=== PATIENT | male | born 1985 | race Caucasian/White ===

== ENCOUNTER 2017-05-23 16:18 | Emergency (ER) | payer BC, SELFPAY ==
[2017-05-23 18:14] VITALS: BP 161/94; PULSE 105; RESP 16; TEMP 36.6; O2SAT 97; BMI 39.0
--- NOTE | 2017-05-23 18:19 | HMH.EDUTC ---
[facility] [place] Disposition Clinical Impression: Vertigo Sinusitis Qualifiers: Sinusitis location: maxillary Chronicity: acute Recurrence: not specified as recurrent Qualified Code(s): J01.00 - Acute maxillary sinusitis, unspecified Disposition: Home, Self-Care Condition on Discharge: Good Instructions: DI for Sinusitis Additional Instructions: REst,fluids. Prescriptions: Meclizine HCl [Antivert 25mg tablet] 25 mg PO Q6HP PRN #20 tab PRN Reason: Dizziness Amoxicillin/Potassium Clav [Augmentin 875-125 Tablet] 1 tab PO Q12H 10 Days #20 tab methylPREDNISolone [Medrol] 4 mg PO DAILY 6 Days #21 tab.ds.pk Referrals: Varghese Ortiz MD [Primary Care Provider] - Time of Disposition: 18:29 Medical Decision Making - Medical Records Medical records reviewed: Yes: I reviewed the patient's medical records. Vital Signs: 05/23/17 18:14 Temperature 98 F Temperature Source Temporal Artery Scan Pulse Rate [Right Brachial] 105 H Respiratory Rate 16 Blood Pressure [Right Arm] 161/94 Blood Pressure Mean [Right Arm] 116 Blood Pressure Source [Right Arm] Automatic Cuff Blood Pressure Position [Right Arm] Sitting 02 Sat by Pulse Oximetry 97 Oxygen Delivery Method Room Air - Lab Data Lab results reviewed: Yes: I reviewed the patient's lab results. - Larry Inquiry Pt receiving controlled substance: No [facility] [place] HPI - General Stated complaint: chest congestion, fever, dizziness Time Seen by Provider: 05/23/17 18:18 - History of Present Illness Provider Complaint: 1 week history of sinus pressure and congestion, bilateral ear pain, hot/flushed off and on. 2 day history of dizziness. Some nausea. No vomiting or diarrhea. Minimal cough. Onset (ago): day(s) (5-7) Location: head Relieving factors: medication Exacerbating factors: none Associated symptoms: fever/chills, headaches, malaise - Related Data Previous Rx's Medication Instructions Recorded Amoxicillin/Potassium Clav 1 tab PO Q12H 10 Days #20 tab 05/23/17 [Augmentin 875-125 Tablet] Meclizine HCl [Antivert 25mg 25 mg PO Q6HP PRN #20 tab 05/23/17 tablet] methylPREDNISolone [Medrol] 4 mg PO DAILY 6 Days #21 tab.ds.pk 05/23/17 Allergies Allergy/AdvReac Type Severity Reaction Status Date / Time No Known Allergies Allergy Unverified 03/31/17 14:53 [facility] History I have reviewed the patient's past medical history: Yes ROS Obtained: Yes All systems reviewed & no additional complaints - Constitutional Constitutional: Reports fever(s), Reports weakness - ENT Ears, Nose, Mouth, and Throat: Reports poor balance, Reports dizziness, Reports otalgia, Reports nasal congestion, Reports nasal discharge, Reports post nasal drip, Denies sore throat - Gastrointestinal Gastrointestingal: Reports: nausea. Denies: diarrhea, vomiting - Neurologic Neurologic: Reports vertigo Physical Exam - General General appearance: alert, in no apparent distress - Head Head exam: atraumatic, normocephalic, normal inspection - Eye Eye exam: Present: normal appearance, PERRL, EOMI - ENT ENT exam: Present: normal exam, normal oropharynx, mucous membranes moist, TM's normal bilaterally, normal external ear exam - Expanded ENT Exam Nose exam: Present: sinus tenderness - Neck Neck exam: Present: normal inspection, full ROM, trachea midline. Absent: meningismus, lymphadenopathy - Chest Chest inspection: Present: normal inspection, symmetric chest wall rise. Absent: tenderness - Respiratory Respiratory exam: Present: normal lung sounds bilaterally. Absent: respiratory distress - Cardiovascular Cardiovascular exam: Present: regular rate, normal rhythm. Absent: JVD - Abdominal Exam Abdominal exam: Present: soft, normal bowel sounds. Absent: distention, tenderness, guarding - Extremities Exam Extremities exam: Present: normal inspection, full ROM, normal capillary refill. Absent: calf tenderness - Back Exam Back exam: Present: normal inspection. Absent: t
[2017-05-23 19:14] VITALS: BP 161/94; PULSE 105; RESP 16; TEMP 36.6; O2SAT 97
[2017-05-23 20:41] LABS: UTC Influenza A Antigen Negative (Negative); UTC Influenza B Antigen Negative (Negative)
== END 2017-05-23 19:14 | disposition home or self-care (01) ==
PROVIDERS: Emergency Provider Physician Assistant; Family Provider Family Medicine; PCP Family Medicine
DX: J01.00 Acute maxillary sinusitis, unspecified (principal)
CPT/HCPCS: 87804; 96372; 99202; J1030

== ENCOUNTER → 2018-07-30 09:05 | Outpatient (CLI) | payer BC, SELFPAY ==
--- NOTE | 2018-07-30 09:13 | XR_ITS ---
XR lumbar spine min 4V Ordering Physician: Liseth Reyes APRN Patient Age: 32 years: Male HISTORY: ITS.REASON: LOW BACK PAIN TECHNIQUE: 5 view lumbar spine series COMPARISON : FINDINGS . The lumbar vertebral bodies are intact and disc spaces are fairly well-maintained throughout. . Normal alignment. No pars defect Bones well mineralized. Pedicles, transverse processes SI joints satisfactory IMPRESSION:-- . lumbar spine intact. Negative.
--- NOTE | 2018-07-30 09:13 | XR_ITS ---
XR shoulder LT min 2V Ordering Physician: Liseth Reyes APRN Patient Age: 32 years: Male HISTORY: ITS.REASON: LT SHOULDER PAIN Left shoulder and low back pain. No acute trauma of then TECHNIQUE: 3 views left shoulder COMPARISON :PA and lateral chest FINDINGS Left shoulder is intact with no fracture evident. Glenohumeral joint is intact. Humeral head and neck intact . Normal density and contour of humeral head. The subacromial space is fairly well-maintained on these limited plain film studies. AC joint unremarkable Scapula unremarkable . Bones well mineralized IMPRESSION: Left shoulder is intact neg
== END ==
PROVIDERS: PCP Nurse Practitioner Family; Visit Provider Nurse Practitioner Family
DX: M25.512 Pain in left shoulder (principal); M54.5 Low back pain
CPT/HCPCS: 72110; 73030

== ENCOUNTER → 2018-10-04 16:29 | Outpatient (CLI) | payer BC, SELFPAY ==
[2018-10-04 16:54] LABS: Basophils # 0.1 K/mm3 (0-0.2); Basophils % 0.5 % (0.1-2.0); Eosinophils # 0.2 K/mm3 (0.0-0.4); Eosinophils % 1.3 % (0.1-12.0); Hematocrit 41.4 % (42.0-52.0); Hemoglobin 13.3 g/dL (14.1-18.0); Lymphocytes # 2.1 K/mm3 (0.7-4.5); Lymphocytes % 18.9 % (10-50); Mean Corpuscular HGB Conc 32.2 g/dL (31.8-35.4); Mean Corpuscular Hemoglobin 25.7 pg (27.0-31.2); Mean Corpuscular Volume 79.8 fl (80-94); Mean Platelet Volume 7.3 fl (7.4-10.4); Monocytes # 0.7 K/mm3 (0.1-1.0); Monocytes % 6.1 % (1.7-9.3); Neutrophils # 8.1 K/mm3 (1.8-7.8); Neutrophils % 73.1 % (37.0-80.0); Platelet Count 346 K/mm3 (142-424); Red Blood Count 5.18 M/mm3 (4.60-6.20); Red Cell Distribution Width 13.7 % (11.5-17.5); White Blood Count 11.1 K/mm3 (4.8-10.8)
[2018-10-04 18:23] LABS: Alanine Aminotransferase 85 U/L (12-78); Albumin Level 3.7 gm/dL (3.4-5.0); Albumin/Globulin Ratio 1.1 (1.1-1.8); Alkaline Phosphatase 83 U/L (46-116); Amylase 51 U/L (25-115); Anion Gap 15.3 mEq/L (5-15); Aspartate Amino Transferase 34 U/L (15-37); Bilirubin,Total 0.3 mg/dL (0.2-1.0); Blood Urea Nitrogen 14 mg/dL (7-18); Carbon Dioxide 27 mmol/L (21.0-32.0); Chloride 103 mmol/L (98-107); Creatinine,Serum 0.65 mg/dL (0.70-1.30); Estimated Glomerular Filt Rate 143 ml/min (>60); GFR (African American) 173 ML/MIN (>60); Globulin 3.5 gm/dl (1.3-3.2); Glucose 89 mg/dL (74-106); Lipase 203 u/L (73-393); Potassium 4.3 mmoL/L (3.5-5.1); Sodium 141 mmol/L (136-145); Total Protein,Serum 7.2 gm/dL (6.4-8.2)
[2018-10-06 07:14] LABS: Hep A Ab, IgM Negative (Negative); Hepatitis B Core Antibody IgM Negative (Negative); Hepatitis B Surface Antigen Negative (Negative)
[2018-10-06 17:46] LABS: Hepatitis C Antibody 0.1 s/co ratio (0.0-0.9)
== END ==
PROVIDERS: Visit Provider Nurse Practitioner Family
DX: R11.0 Nausea (principal); R10.11 Right upper quadrant pain; R42 Dizziness and giddiness
CPT/HCPCS: 36415; 80053; 80074; 82150; 83690; 85025

== ENCOUNTER → 2018-11-15 09:10 | Outpatient (CLI) | payer BC, SELFPAY ==
--- NOTE | 2018-11-15 09:23 | US_ITS ---
US abdomen limited History:Right upper quadrant pain Ordering Physician:Liseth Reyes APRN Patient Age: 32 years Comparison:None Findings: Pancreas:Unremarkable. No obvious mass or abnormal fluid collection. No ductal dilatation Liver:Fatty liver Right Kidney:Unremarkable. Normal size and echogenicity. No hydronephrosis Gallbladder:The gallbladder slightly distended at 10 x 3 cm. No shadowing stones are evident. No biliary dilatation or pericholecystic fluid or gallbladder wall thickening. Common bile duct is normal at 3 mm IMPRESSION: Fatty liver. Mild gallbladder distention. No obvious stones
== END ==
PROVIDERS: PCP Nurse Practitioner Family; Visit Provider Nurse Practitioner Family
DX: R10.11 Right upper quadrant pain (principal); R10.13 Epigastric pain
CPT/HCPCS: 76705

== ENCOUNTER → 2018-11-22 12:40 | Outpatient (CLI) | payer BC, SELFPAY ==
[2018-11-22 13:06] LABS: Basophils # 0.1 K/mm3 (0-0.2); Basophils % 0.5 % (0.1-2.0); Eosinophils # 0.1 K/mm3 (0.0-0.4); Eosinophils % 1.1 % (0.1-12.0); Hematocrit 41.7 % (42.0-52.0); Hemoglobin 13.7 g/dL (14.1-18.0); Lymphocytes # 1.9 K/mm3 (0.7-4.5); Lymphocytes % 17.5 % (10-50); Mean Corpuscular HGB Conc 32.9 g/dL (31.8-35.4); Mean Corpuscular Hemoglobin 27.2 pg (27.0-31.2); Mean Corpuscular Volume 82.7 fl (80-94); Monocytes # 0.5 K/mm3 (0.1-1.0); Neutrophils # 8.2 K/mm3 (1.8-7.8); Platelet Count 350 K/mm3 (142-424); Red Blood Count 5.05 M/mm3 (4.60-6.20); Red Cell Distribution Width 13.9 % (11.5-17.5); White Blood Count 10.8 K/mm3 (4.8-10.8)
[2018-11-22 14:23] LABS: Alanine Aminotransferase 78 U/L (12-78); Albumin Level 3.6 gm/dL (3.4-5.0); Albumin/Globulin Ratio 0.9 (1.1-1.8); Alkaline Phosphatase 75 U/L (46-116); Amylase 47 U/L (25-115); Anion Gap 13.3 mEq/L (5-15); Aspartate Amino Transferase 30 U/L (15-37); Bilirubin,Total 0.4 mg/dL (0.2-1.0); Blood Urea Nitrogen 12 mg/dL (7-18); Calcium 9.2 mg/dL (8.5-10.1); Carbon Dioxide 29 mmol/L (21.0-32.0); Chloride 102 mmol/L (98-107); Creatinine,Serum 0.75 mg/dL (0.70-1.30); Estimated Glomerular Filt Rate 121 ml/min (>60); GFR (African American) 147 ML/MIN (>60); Globulin 3.8 gm/dl (1.3-3.2); Glucose 144 mg/dL (74-106); Lipase 191 u/L (73-393); Potassium 4.3 mmoL/L (3.5-5.1); Sodium 140 mmol/L (136-145); Total Protein,Serum 7.4 gm/dL (6.4-8.2)
== END ==
PROVIDERS: Visit Provider Nurse Practitioner Family
DX: R10.11 Right upper quadrant pain (principal); R11.2 Nausea with vomiting, unspecified
CPT/HCPCS: 36415; 80053; 82150; 83690; 85025

== ENCOUNTER → 2018-12-01 10:11 | Outpatient (CLI) | payer BC, SELFPAY ==
--- NOTE | 2018-12-01 10:13 | NM_ITS ---
PROCEDURE: NM HEPATOBILIARY W PHARM CLINICAL INDICATION: RUQ PAIN,N/V Right upper quadrant pain with nausea and vomiting COMPARISON: No exams were available for comparison FINDINGS: Dose: 7.93 mCi technetium Choletec 2.8 mcg of CCK. The patient did of complain nausea and pain with CCK infusion The gallbladder is visualized in less than 5 minutes. Small bowel is visualized by 5 minutes. Ejection fraction is normal at 84 percent IMPRESSION: Unremarkable exam. No evidence of common or cystic duct obstruction. Dictated by: Roberto Feliciano MD 12/02/2018 13:39 Signed by: <Electronically signed by Roberto Feliciano MD in [place]> 12/02/2018 13:39
== END ==
PROVIDERS: PCP Nurse Practitioner Family; Visit Provider Nurse Practitioner Family
DX: R10.11 Right upper quadrant pain (principal); R11.2 Nausea with vomiting, unspecified
CPT/HCPCS: 78227; A9537; J2805

== ENCOUNTER → 2018-12-27 16:04 | Outpatient (POV) | payer BC, SELFPAY | PROVIDERS: PCP Nurse Practitioner Family; Visit Provider Nurse Practitioner Family | DX: Z00.00 Encounter for general adult medical examination without abnormal findings (principal) ==

== ENCOUNTER → 2018-12-28 08:53 | Outpatient (CLI) | payer BC, SELFPAY ==
[2018-12-28 08:55] LABS: Adenovirus F 40/41, stool Not Detected (NotDetected); Astrovirus Not Detected (NotDetected); Campylobacter Not Detected (NotDetected); Clostridium Difficile A/B, PCR Not Detected (NotDetected); Cryptosporidium Not Detected (NotDetected); Cyclospora Cayetanesis Not Detected (NotDetected); Entamoeba histolytica Not Detected (NotDetected); Enteroaggregative E coli Not Detected (NotDetected); Enterotoxigenic E coli Not Detected (NotDetected); Giardia lamblia Not Detected (NotDetected); Norovirus Not Detected (NotDetected); Plesimonas Shigalloides, PCR Not Detected (NotDetected); Rotavirus A Not Detected (NotDetected); Salmonella, PCR Not Detected (NotDetected); Sapovirus Not Detected (NotDetected); Shiga-like toxin E coli Not Detected (NotDetected); Shigella Enterovasive E coli Not Detected (NotDetected); Vibrio Cholerae Not Detected (NotDetected); Vibrio, PCR Not Detected (NotDetected); Yersinia Entercolitica, PCR Not Detected (NotDetected)
[2018-12-28 11:49] LABS: Enteropathogenic E coli Detected (NotDetected)
== END ==
PROVIDERS: Visit Provider Nurse Practitioner Family
DX: A04.0 Enteropathogenic Escherichia coli infection (principal); R19.7 Diarrhea, unspecified
CPT/HCPCS: 87507

== ENCOUNTER 2019-12-06 14:56 | Emergency (ER) | payer OTHER, SELFPAY ==
[2019-12-06 15:10] VITALS: BP 157/94; PULSE 94; RESP 20; TEMP 36.7; O2SAT 96; BMI 42.4
--- NOTE | 2019-12-06 15:23 | HMH.EDUTC ---
[facility] [place] Disposition Clinical Impression: Otitis media Qualifiers: Otitis media type: suppurative Chronicity: acute Laterality: left Recurrence: non-recurrent Spontaneous tympanic membrane rupture: without spontaneous rupture Qualified Code(s): H66.002 - Acute suppurative otitis media without spontaneous rupture of ear drum, left ear Disposition: Home, Self-Care Condition on Discharge: Good Instructions: Middle Ear Infection Additional Instructions: Drink plenty of fluids. Take tylenol or ibuprofen for pain or fever. Take the medications as directed. Follow up with your regular doctor. GO TO THE ER FOR ANY WORSENING SYMPTOMS Prescriptions: methylPREDNISolone [Medrol] 4 mg PO DIRECTED 6 Days #21 tab.ds.pk Transmission Status: Received by [facility] Cefdinir [Omnicef 300mg Capsule] 300 mg PO BID #20 cap Transmission Status: Received by [facility] Referrals: Liseth Reyes APRN [Primary Care Provider] - Time of Disposition: 15:56 Medical Decision Making - Medical Records Medical records reviewed: No: I reviewed the patient's medical records. - Larry Inquiry Pt receiving controlled substance: No Vital Signs: 12/06/19 15:10 Temperature 98.1 F Temperature Source Oral Pulse Rate [Right Brachial] 94 H Respiratory Rate 20 Blood Pressure [Right Arm] 157/94 H Blood Pressure Mean [Right Arm] 115 Blood Pressure Source [Right Arm] Automatic Cuff Blood Pressure Position [Right Arm] Sitting 02 Sat by Pulse Oximetry 96 Oxygen Delivery Method Room Air Orders (Tests/Meds): ED MEDICATIONS Discontinued Medications Generic Name Dose Route Start Last Admin Trade Name Freq PRN Reason Stop Dose Admin Methylprednisolone Sodium Succinate 125 mg 12/06/19 15:53 Solu-Medrol 125mg/2ml Vial IM 12/06/19 15:54 ONCE ONE [facility] [place] HPI - General Stated complaint: ear pain in both ears Time Seen by Provider: 12/06/19 15:23 Mode of Arrival: Ambulatory Source of Information: Patient Limitations: No Limitations Description of Symptoms (Recalled from Triage Doc. by RN): PATIENT C/O DIZZINESS, EAR PAIN, COUGH, NAUSEA, AND FATIGUE X 4 DAYS HEENT Symptoms (Recalled from RN notes): Yes Resp Symptoms (Recalled from RN notes): Yes Skin Symptoms (Recalled from RN notes): No MS Symptoms (Recalled from RN notes): No Functional Status (Recalled from RN notes): WNL - History of Present Illness Provider Complaint: He c/o having a history of frequent infections and problems with his ears. He states that for the past 3 days he has been getting dizzy and having left ear pain. - Related Data Home Medications Medication Instructions Recorded Confirmed Escitalopram Oxalate [Lexapro] 10 mg PO DAILY 09/15/18 03/22/19 Dicyclomine HCl [Bentyl 10mg 10 mg PO DAILY 03/22/19 03/22/19 capsule] lisinopriL [Lisinopril 10mg Tab] 10 mg PO DAILY 03/22/19 03/22/19 Previous Rx's Medication Instructions Recorded Azithromycin [Z-Binu 250mg Tab*] 250 mg PO UD DOSE PK #6 tab 03/22/19 Oseltamivir Phosphate [Tamiflu 75 mg PO BID #10 cap 03/22/19 75mg Capsule] predniSONE [Deltasone 10mg tablet] 10 mg PO BID 4 Days #8 tab 03/22/19 Amoxicillin/Potassium Clav 1 tab PO Q12H 10 Days #20 tab 06/24/19 [Augmentin 875-125 Tablet] predniSONE [Prednisone 20mg 20 mg PO BID 5 Days #10 tab 06/24/19 Tab] Cefdinir [Omnicef 300mg Capsule] 300 mg PO BID #20 cap 12/06/19 methylPREDNISolone [Medrol] 4 mg PO DIRECTED 6 Days #21 12/06/19 tab.ds.pk Allergies Allergy/AdvReac Type Severity Reaction Status Date / Time sumatriptan [From Imitrex] Allergy Verified 12/06/19 15:15 - Worker's Comp Is this a Worker's Comp case?: No [facility] History - Hepatitis A Screen Drug use history?: No High risk sexual behaviors?: No History of sexually transmitted infection?: No Currently employed?: No Childcare worker?: No Do you have indoor plumbing?: Yes Do you have electricity?: Yes Attestation st
[2019-12-06 16:12] VITALS: BP 157/94; PULSE 94; RESP 20; TEMP 36.7; O2SAT 96
== END 2019-12-06 16:14 | disposition home or self-care (01) ==
PROVIDERS: Emergency Provider Nurse Practitioner Family; PCP Nurse Practitioner Family
DX: H66.002 Acute suppurative otitis media without spontaneous rupture of ear drum, left ear (principal); I10 Essential (primary) hypertension; E11.9 Type 2 diabetes mellitus without complications; Z88.8 Allergy status to other drugs, medicaments and biological substances
CPT/HCPCS: 96372; 99201

== ENCOUNTER 2020-06-23 10:14 | Emergency (ER) | payer OTHER, SELFPAY ==
[2020-06-23 10:22] VITALS: BP 140/82; PULSE 82; RESP 16; TEMP 36.7; O2SAT 98; BMI 42.7
--- NOTE | 2020-06-23 10:56 | HMH.EDUTC ---
[facility] [place] Disposition Clinical Impression: Strep throat Disposition: Home, Self-Care Condition on Discharge: Good Instructions: DI for Strep Throat Additional Instructions: Start antibiotics today be sure to take it as ordered with the full length of time although you should start feeling better in 24-48 hours. Change toothbrush and toothpaste 24-48 hours after starting antibiotics Tylenol or Motrin as needed for fever or pain Encourage fluids, water, Gatorade, Powerade, try cold fluids, popsicles, ice cream will make it feel better You are contagious for 24 hours. Avoid kissing anyone, no eating or drinking after anyone. You are contagious. Follow-up the ER for new or worsening symptoms or no noticeable improvement over the next 24-48 hours. Follow-up with PCP this week. Prescriptions: Azithromycin [Zithromax 250mg tab] 250 mg PO DIRECTED #6 tab Transmission Status: Pending to [facility] Referrals: Liseth Reyes APRN [Primary Care Provider] - Forms: Work/School Release Time of Disposition: 11:17 Medical Decision Making - Larry Inquiry Pt receiving controlled substance: No Vital Signs: 06/23/20 10:22 Temperature 98.1 F Temperature Source Oral Pulse Rate [Right] 82 Respiratory Rate 16 Blood Pressure [Right Arm] 140/82 Blood Pressure Mean [Right Arm] 101 Blood Pressure Source [Right Arm] Automatic Cuff Blood Pressure Position [Right Arm] Sitting 02 Sat by Pulse Oximetry 98 Oxygen Delivery Method Room Air - Lab Data Lab Results 06/23/20 10:43: Strep Scn Rapid Clinic Positive A Orders (Tests/Meds): ORDERS Category Date Time Status Covid-19 Nasal PCR ([facility]) Routine Lab 06/23/20 11:00 Received [facility] [place] HPI - General Chief complaint: Urgent [facility] Stated complaint: sinus issues, chest congestion, coughing Time Seen by Provider: 06/23/20 10:57 Mode of Arrival: Ambulatory Source of Information: Patient Limitations: No Limitations Description of Symptoms (Recalled from Triage Doc. by RN): sore throat and productive cough with brown sputum. HEENT Symptoms (Recalled from RN notes): Yes (sore throat) Resp Symptoms (Recalled from RN notes): Yes (productive cough with brown sputum) Skin Symptoms (Recalled from RN notes): No MS Symptoms (Recalled from RN notes): No Functional Status (Recalled from RN notes): na - History of Present Illness Provider Complaint: 34 yr old male presents for sore throat, nasal congestion, coughing up brown sputum for 3 days. - Related Data Home Medications Medication Instructions Recorded Confirmed Escitalopram Oxalate [Lexapro] 10 mg PO DAILY 09/15/18 03/22/19 Dicyclomine HCl [Bentyl 10mg 10 mg PO DAILY 03/22/19 03/22/19 capsule] lisinopriL [Lisinopril 10mg Tab] 10 mg PO DAILY 03/22/19 03/22/19 Previous Rx's Medication Instructions Recorded Azithromycin [Z-Binu 250mg Tab*] 250 mg PO UD DOSE PK #6 tab 03/22/19 Oseltamivir Phosphate [Tamiflu 75 mg PO BID #10 cap 03/22/19 75mg Capsule] predniSONE [Deltasone 10mg tablet] 10 mg PO BID 4 Days #8 tab 03/22/19 Amoxicillin/Potassium Clav 1 tab PO Q12H 10 Days #20 tab 06/24/19 [Augmentin 875-125 Tablet] predniSONE [Prednisone 20mg 20 mg PO BID 5 Days #10 tab 06/24/19 Tab] Cefdinir [Omnicef 300mg Capsule] 300 mg PO BID #20 cap 12/06/19 methylPREDNISolone [Medrol] 4 mg PO DIRECTED 6 Days #21 12/06/19 tab.ds.pk Azithromycin [Zithromax 250mg 250 mg PO DIRECTED #6 tab 06/23/20 tab] Allergies Allergy/AdvReac Type Severity Reaction Status Date / Time sumatriptan [From Imitrex] Allergy Verified 06/23/20 10:22 - Worker's Comp Is this a Worker's Comp case?: No [facility] History - Hepatitis A Screen Drug use history?: No High risk sexual behaviors?: No History of sexually transmitted infection?: No Currently employed?: No Childcare worker?: No Do you have indoor plumbing?: Yes Do you have electricity?: Yes Attestation statement:: This patien
[2020-06-23 11:08] LABS: UTC Strep Screen (Rapid) Positive (Negative)
[2020-06-23 11:27] VITALS: BP 138/79; PULSE 78; RESP 18; TEMP 36.6
== END 2020-06-23 11:30 | disposition home or self-care (01) ==
PROVIDERS: Emergency Provider Nurse Practitioner Family; PCP Nurse Practitioner Family
DX: J02.0 Streptococcal pharyngitis (principal); Z20.822 Contact with and (suspected) exposure to COVID-19; I10 Essential (primary) hypertension; E11.9 Type 2 diabetes mellitus without complications; F41.9 Anxiety disorder, unspecified
CPT/HCPCS: 87880; 99202; G0463; U0003

== ENCOUNTER → 2020-08-21 15:51 | Outpatient (CLI) | payer OTHER, SELFPAY ==
--- NOTE | 2020-08-21 15:51 | MR_ITS ---
PROCEDURE: MR HEAD/BRAIN WO CON CLINICAL INDICATION: eval for [employer] abnormality COMPARISON: No exams were available for comparison TECHNIQUE: Routine multiplanar multi echo sequences are performed without gadolinium enhancement. FINDINGS: No evidence of restricted diffusion. No intra or extra-axial hemorrhage, space occupying lesion or acute infarct. The flow voids in the major intracranial vessels are preserved. The neal-white matter differentiation is unremarkable without evidence of acute infarcts. Brain parenchymal volume is appropriate for the age of the patient. No midline shift or mass effect. The sella and the suprasellar region are unremarkable. The visualized osseous structures are unremarkable. Minor mucosal thickening of the ethmoidal sinuses. Otherwise the paranasal sinuses and mastoid air cells are clear. IMPRESSION: No acute intracranial process. Dictated by: Mariann Garcia 08/22/2020 10:35 Mariann Garcia in [place] 08/22/2020 10:35
== END ==
PROVIDERS: PCP Nurse Practitioner Family; Visit Provider Specialist
DX: G43.709 Chronic migraine without aura, not intractable, without status migrainosus (principal)
CPT/HCPCS: 70551

== ENCOUNTER → 2020-08-30 10:46 | Outpatient (CLI) | payer OTHER, SELFPAY | PROVIDERS: PCP Nurse Practitioner Family; Visit Provider Nurse Practitioner Family | DX: G47.33 Obstructive sleep apnea (adult) (pediatric) (principal); R06.83 Snoring; G43.709 Chronic migraine without aura, not intractable, without status migrainosus; I10 Essential (primary) hypertension; Z68.41 Body mass index [BMI] 40.0-44.9, adult | CPT/HCPCS: 95806 ==

== ENCOUNTER 2020-10-25 10:46 | Emergency (ER) | payer OTHER, SELFPAY ==
[2020-10-25 10:50] VITALS: BP 126/81; PULSE 71; RESP 18; TEMP 36.7; O2SAT 97; BMI 40.6
[2020-10-25 11:15] VITALS: BP 126/81; PULSE 71; RESP 18; TEMP 36.7; O2SAT 97
--- NOTE | 2020-10-25 11:15 | HMH.EDUTC ---
[facility] [place] Disposition Clinical Impression: Strep throat Disposition: Home, Self-Care Condition on Discharge: Good Instructions: DI for Strep Throat, Strep Throat, Amoxicillin, Benzonatate Additional Instructions: *Monitor Temp, Over the counter Motrin or Tylenol as directed/as needed Tylenol every 4 hours and Motrin every 6 hours (as long as your family doctor has told you that you can take it) for fever or pain. and straight to ER if unable to lower temp less than 101.0 after medication given *Warm salt water gargles may help to soothe the throat *Throat Lozenges *Warm fluids like tea with honey may help to soothe the throat *Sleep elevated *Humidifier/Vaporizer *Flonase 2 sprays in each nostril daily but be aware that it may take 2-3 days before you notice improvement Take medication as prescribed Your throat swab was sent for culture. Those results are typically sent to your primary care. Be sure to follow up in 2-3 days with your family doctor/primary care physician if no improvement so they can review those result and treat if necessary. If you don?t have a primary care doctor, I recommend you get one but in the mean time, you will have to return to a walk in clinic Follow up IMMEDIATELY for new or worsening symptoms or no Noticeable improvement over the next 48-72 hours. 911 for difficulty breathing or swallowing Prescriptions: Amoxicillin [Amoxicillin 875MG Tab] 875 mg PO Q12H #20 tab Transmission Status: Pending to [facility] Benzonatate [Tessalon Perle 100mg Cap*] 100 mg PO TID PRN #15 cap PRN Reason: Cough Transmission Status: Pending to [facility] Referrals: Liseth Reyes APRN [Primary Care Provider] - As needed Time of Disposition: 11:18 Medical Decision Making - Larry Inquiry Pt receiving controlled substance: No Larry was queried for this patient: No Vital Signs: 10/25/20 10:50 Temperature 98.1 F Temperature Source Oral Pulse Rate [Left Brachial] 71 Respiratory Rate 18 Blood Pressure [Left Arm] 126/81 Blood Pressure Mean [Left Arm] 96 Blood Pressure Source [Left Arm] Automatic Cuff Blood Pressure Position [Left Arm] Sitting 02 Sat by Pulse Oximetry 97 Oxygen Delivery Method Room Air - Lab Data Lab results reviewed: Yes: I reviewed the patient's lab results. [facility] [place] HPI - General Stated complaint: possible strep,sore throat, cough, ear pain Time Seen by Provider: 10/25/20 11:15 Mode of Arrival: Ambulatory Source of Information: Patient Limitations: No Limitations Description of Symptoms (Recalled from Triage Doc. by RN): PATIENT C/O SORE THROAT AND COUGH SINCE LAST NIGHT HEENT Symptoms (Recalled from RN notes): Yes Resp Symptoms (Recalled from RN notes): No Skin Symptoms (Recalled from RN notes): No MS Symptoms (Recalled from RN notes): No Functional Status (Recalled from RN notes): WNL - History of Present Illness Provider Complaint: Patient states that he thinks he may have strep throat State that he was recenlty around his cousin that has since tested positive for strep throat States that he has been having sore throat, cough, and bilateral ear pain and wanted to get checked - Related Data Home Medications Medication Instructions Recorded Confirmed lisinopriL [Lisinopril 10mg Tab] 10 mg PO DAILY 03/22/19 09/24/20 cyclobenzaprine 10 mg tablet 10 mg PO HS PRN 08/13/20 09/24/20 dicyclomine 10 mg capsule 10 mg PO TID cap 08/13/20 09/24/20 escitalopram oxalate 10 mg tablet 20 mg PO DAILY tab 08/13/20 09/24/20 fluticasone propionate 50 1 spray INTRANASAL BID 08/13/20 09/24/20 mcg/actuation nasal spray,suspension meloxicam 15 mg tablet 15 mg PO DAILY 08/13/20 09/24/20 Previous Rx's Medication Instructions Recorded rimegepant 75 mg disintegrating 75 mg PO ONCE PRN #8 tab 08/13/20 tablet topiramate 50 mg tablet 150 mg PO HS 30 Days #90 tab 09/24/20 Amoxicillin [Amoxicillin 875MG 875 mg PO Q12H #20 tab 10/25/20 Tab] Benzonatate [Tessalon Pe
[2020-10-25 11:20] LABS: UTC Strep Screen (Rapid) Positive (Negative)
== END 2020-10-25 11:23 | disposition home or self-care (01) ==
PROVIDERS: Emergency Provider Nurse Practitioner; PCP Nurse Practitioner Family
DX: J02.0 Streptococcal pharyngitis (principal); E11.9 Type 2 diabetes mellitus without complications; I10 Essential (primary) hypertension; M19.90 Unspecified osteoarthritis, unspecified site; G43.909 Migraine, unspecified, not intractable, without status migrainosus
CPT/HCPCS: 87880; 99202; G0463

== ENCOUNTER → 2021-05-09 11:39 | Outpatient (CLI) | payer OTHER, SELFPAY ==
[2021-05-10 13:35] LABS: Covid-19 Nasal PCR Sendout Lex NOT DETECTED
== END ==
PROVIDERS: Visit Provider Nurse Practitioner
DX: Z20.822 Contact with and (suspected) exposure to COVID-19 (principal)
CPT/HCPCS: C9803; U0004; U0005

== ENCOUNTER → 2021-11-04 08:50 | Outpatient (CLI) | payer SELFPAY ==
--- NOTE | 2021-11-04 08:51 | CT_ITS ---
FINAL REPORT CLINICAL HISTORY: . CHEST PAIN, SIGNIFICANT FAMILY HX CORONARY ARTERY DISEASE. FINDINGS: CT CORONARY CALCIUM SCORE W/O TECHNIQUE: Thin-section axial images were obtained through the heart and coronary arteries per CT coronary calcium score protocol. This study was performed with techniques to keep radiation doses as low as reasonably achievable (ALARA). Individualized dose reduction techniques using automated exposure control or adjustment of mA and/or kV according to the patient's size were employed. FINDINGS: On the axial images, there is no coronary artery calcification. This gives a coronary artery calcium score of 0 based on the Agatston scale. This coronary artery calcium score places the patient within the 0 percentile based on age and gender. The heart size is normal. There is no pericardial effusion. Limited evaluation of the lungs reveal no suspicious nodule. IMPRESSION: Coronary artery calcium score of 0 which places the patient in the 0 percentile rank for gender and age. Reviewed, Interpreted and Dictated by Monserrat Mckeon MD Transcribed by Doris Garcia Authenticated and [facility]
== END ==
PROVIDERS: PCP Nurse Practitioner Family; Visit Provider Nurse Practitioner Family
DX: R06.09 Other forms of dyspnea (principal); R07.89 Other chest pain; I10 Essential (primary) hypertension
CPT/HCPCS: 75571

== ENCOUNTER → 2021-11-04 09:21 | Outpatient (CLI) | payer BC, SELFPAY ==
--- NOTE | 2021-11-04 | CA_ITS ---
APPROVED REPORT Exam: Exercise Treadmill Technologist: Rosa Coy, Ht: 5 ft 11 in Wt: 268 lbs BSA: 2.39 m2 HR: 65 bpm BP: 128/72 mmHg Rhythm: NSR Medical History Medical History: HTN, Diabetes Medications: Lisinopril,,,,, Aspirin,,,,, Trazadone,,,,, Escitalopram,,,,, Mobic,,,,, TopIRAMATE,,,,, DicyCLOMINE,,,,, Levocetirizine,,,,, CyclobenzapINE,,,,, ANASpaz,,,,, Cardiac Risk Factors: HTN, Diabetes (non-insulin), FHX of CAD Stress Test Details Test: Silvio HR Resting HR: 79 bpm Max Heart Rate (APMHR): 186.205503 bpm Max HR Achieved: 164 bpm Target HR (85% APMHR): 158.688659 bpm % of APMHR: 88.17 Recovery HR: 133 bpm BP Resting BP: 153/71 mmHg Max BP: 190/81 mmHg Recovery BP: 190.0/81.0 mmHg ECG Resting ECG: NSR Clinical Reason for Termination: Dyspnea Leg Pain Exercise duration: 08:00 min Highest Stage Achieved: Exercise capacity: 10.1 METs Stress ECG Conclusion During silvio protocol pt walked total of 8 minutes, 10.1 METS. No CP noted. No arrhythmias noted. <1.5mm ST segment changes. Negative stress test. Test Summary REST . . . . . . . Sitting REST . . . . . . . Protocol changed to Manual Treadmill REST . . . . . . . Standing REST 21:13 0.0 0.8 79 . 153/ 71 . . Stage 1 . . . . . . . Protocol changed to Silvio Stage 1 01:00 10.0 1.7 92 . . . . Stage 1 02:00 10.0 1.7 111 . . . . Stage 1 03:00 10.0 1.7 109 . 160/ 80 . . Stage 2 01:00 12.0 2.5 119 . . . . Stage 2 02:00 12.0 2.5 132 . . . . Stage 2 03:00 12.0 2.5 133 . 178/ 83 . . Stage 3 01:00 14.0 3.4 152 . . . . Stage 3 02:00 14.0 3.4 163 . . . Stop exercise at 08:00 RECOVERY 01:00 0.0 0.0 133 . . . . RECOVERY 02:00 0.0 0.0 108 . . . . RECOVERY 03:00 0.0 0.0 100 . . . . RECOVERY 04:00 0.0 0.0 93 . 190/ 81 . . RECOVERY 05:00 0.0 0.0 85 . 190/ 81 . . RECOVERY 06:00 0.0 0.0 86 . 156/ 79 . . RECOVERY 07:00 0.0 0.0 0 . 156/ 79 . . RECOVERY 07:37 0.0 0.0 0 . 156/ 79 . . Electronically signed by : Alli Herman MD 11/04/2021 19:01:27
--- NOTE | 2021-11-04 09:21 | CA_ITS ---
APPROVED REPORT EXAM: Comprehensive 2D, Doppler, and color-flow Echocardiogram It Infrastructure Specialist: Maira Patel RVT Ht: 5 ft 11 in Wt: 269lbs BSA: 2.39 BP: 122/67 mmHg Indications: CP,HTN,SOA,FAMILY HX HD Stress Test Details HR Max Heart Rate (APMHR): 186.870657 bpm Target HR (85% APMHR): 158.846250 bpm BP ECG Conclusion 1. Patient exercised on Michael protocol for 8 minutes, achieved 10.1 METs of workload on treadmill, the blood pressure response to exercise was adequate, there was no exercise-induced chest discomfort. EKG was negative for ischemia. 2. Resting echocardiogram showed normal left ventricular size and function, with exercise there is increase in contractility of all the segments of the myocardium with hyperdynamic left ventricular systolic response, no obvious wall motion abnormality to suggest underlying ischemic heart disease. 3. Normal exercise stress echocardiogram. Electronically signed by : Alli Herman MD 11/04/2021 20:12:44
--- NOTE | 2021-11-04 09:21 | CA_ITS ---
APPROVED REPORT EXAM: Comprehensive 2D, Doppler, and color-flow Echocardiogram Core Placer: Caterina Mota CRT Ht: 5 ft 11 in Wt: 268lbs BSA: 2.39 BP: 122/67 mmHg Indications: Chest Pain, Shortness of Breath, Diabetes, Hypertension/HDD, family hx 2D Dimensions LVOT 2.03 cm (M/F) 1.5-2.5 LA Volume 33.40 mL LA Volume Index 14.00 mL/m2 (M/F) 16-34 M-Mode Dimensions RVDd 2.37 cm (0.9-2.6) LA Diam 3.07 cm (1.9-4.0) LVDd 6.03 cm (3.5-5.7) Ao Diam 3.72 cm (2.0-3.7) LVDs 3.30 cm (3.5-5.7) IVSd 1.04 cm (0.6-1.1) PWd 0.75 cm (0.6-1.1) EF (Teich) 75.80% FS 45.30% EDV (Teich) 182.10 mL TAPSE 2.12 (<1.7) ESV (Teich) 44.10 mL LV Diastology E Decel Time 220.00 (160-240 msec) E/A Ratio 1.45 MED E' 9.70 (< 7 cm/sec) MED A' 12.10 cm/s E'/MED E' Ratio 10.63 (>14) LAT E' 12.10 (<10 cm/sec) LAT A' 9.90 cm/s E/LAT E' Ratio 8.52 (>14) Aortic Valve AO Peak GR. 7.80 mmHg Mitral Valve MV E Max Alberto. 103.00 (40-130 cm/s) MV A Velocity 71.00 (40-130 cm/s) E/A Ratio 1.45 MV Decel. Time 220.00 (160-240 ms) MV PHT 64.00 ms Pulmonary Valve PV Peak Velocity 150.00 (50-150 cm/s) Tricuspid Valve TR P. Velocity 201.00 cm/s RAP Estimate 10.00 mmHg RVSP 26.20 mmHg Left Ventricle Left atrium normal size, left ventricle is normal size, there is no concentric left ventricular hypertrophy, estimated ejection fraction 55% with no regional wall motion abnormality, diastolic parameters are within normal range. Right Ventricle Right atrium and right ventricle are normal size and contractility. Aortic Valve Aortic valve is grossly normal there is no aortic stenosis or aortic insufficiency. Mitral Valve Mitral valve grossly normal, there is trace mitral regurgitation. Tricuspid Valve Tricuspid grossly normal, there is trace tricuspid regurgitation, tricuspid regurgitation jet velocity is inadequate for calculation of the right ventricular systolic pressure. Pulmonic Valve Pulmonic valve is poorly visualized. Great Vessels Aortic root is normal size. Inferior vena cava is poorly visualized. Pericardium No significant pericardial effusion noted. Conclusion 1. Normal left ventricular size, preserved left ventricular systolic function, estimated ejection fraction 55% with no regional wall motion abnormality, diastolic parameters are within normal range. 2. Trace mitral and tricuspid regurgitation. 3. No significant pericardial effusion noted. 4. Inferior vena cava is poorly visualized. Electronically signed by : Alli Herman MD 11/04/2021 20:09:08
[2021-11-04 09:40] LABS: Basophils # 0.1 K/mm3 (0-0.2); Basophils % 0.8 % (0.1-2.0); Eosinophils # 0.2 K/mm3 (0.0-0.4); Eosinophils % 2.1 % (0.1-12.0); Hemoglobin 14.4 g/dL (14.1-18.0); Lymphocytes # 1.7 K/mm3 (0.7-4.5); Lymphocytes % 24.6 % (10-50); Mean Corpuscular HGB Conc 33.4 g/dL (31.8-35.4); Mean Corpuscular Hemoglobin 27.7 pg (27.0-31.2); Mean Corpuscular Volume 82.7 fl (80-94); Mean Platelet Volume 7.2 fl (7.4-10.4); Monocytes # 0.6 K/mm3 (0.1-1.0); Monocytes % 8.1 % (1.7-9.3); Neutrophils # 4.5 K/mm3 (1.8-7.8); Neutrophils % 64.4 % (37.0-80.0); Platelet Count 303 K/mm3 (142-424); White Blood Count 6.9 K/mm3 (4.8-10.8)
[2021-11-04 10:00] LABS: Alanine Aminotransferase 23 U/L (12-78); Alkaline Phosphatase 78 U/L (38-126); Anion Gap 13.2 mEq/L (5-15); Aspartate Amino Transferase 24 U/L (17-59); Bilirubin,Unconjugated 0.3 mg/dL (0.0-1.1); Blood Urea Nitrogen 21 mg/dl (9-20); Carbon Dioxide 24 mmol/L (22.0-30.0); Chloride 109 mmol/L (98-107); Chol/HDL Ratio 4.9 (1-3.5); Cholesterol 122 mg/dl (140-200); Estimated Glomerular Filt Rate 111 ml/min (>60); GFR (African American) 134 ML/MIN (>60); Glucose 90 mg/dl (74-100); HDL Cholesterol 25 mg/dl (40-60); Potassium 4.2 mmoL/L (3.5-5.1); Sodium 142 mmol/L (136-145); Total Protein,Serum 6.6 g/dl (6.3-8.2); Triglycerides 130 mg/dl (30-150); VLDL Cholesterol 26 mg/dL (0-40)
[2021-11-04 10:03] LABS: Bilirubin,Total < 0.1 mg/dl (0.2-1.3)
[2021-11-04 10:10] LABS: Hemoglobin A1C 5.3 % (4.0-6.0)
[2021-11-04 10:12] LABS: Direct LDL Cholesterol 76.84 mg/dL (100-129)
[2021-11-04 10:17] LABS: Free T4 (Free Thyroxine) 0.82 ng/dl (0.78-2.19)
[2021-11-04 10:31] LABS: Thyroid Stimulating Hormone 1.97 uIU/mL (0.465-4.68)
[2021-11-04 10:34] LABS: Bilirubin,Indirect 0.3 mg/dL (0.0-0.9)
== END ==
LOC: RT 09:21
PROVIDERS: PCP Nurse Practitioner Family; Visit Provider Nurse Practitioner Family
DX: R06.09 Other forms of dyspnea (principal); R07.89 Other chest pain; I10 Essential (primary) hypertension
CPT/HCPCS: 36415; 80048; 80061; 80076; 83036; 84439; 84443; 85025; 93017; 93306; 93350

== ENCOUNTER → 2021-12-23 09:02 | Outpatient (CLI) | payer OTHER, SELFPAY ==
--- NOTE | 2021-12-23 09:09 | MR_ITS ---
FINAL REPORT CLINICAL HISTORY: INJURY AT WORK 1 WEEK AGO, PT WAS MOVING PALLET AND FELT A POP IN LOWER LEG. BRUISING AND SWELLING NOTED TO LOWER LEG. FINDINGS: Multiplanar MR imaging of the right lower leg was performed without contrast. There is no evidence of fracture, bone bruise or marrow edema. No bony mass is identified. There is abnormal signal at the medial head of the gastrocnemius muscle consistent with mild to moderate muscle injury. Heterogeneous fluid is seen between the head of the gastrocnemius and soleus muscles consistent with hematoma. No localized soft tissue inflammation is identified. No soft tissue mass or cyst is identified. IMPRESSION: Mild to moderate gastrocnemius muscle injury with associated hematoma. Reviewed, Interpreted and Dictated by Catalino Gunn III, MD Transcribed by Codie Amado Authenticated and . [facility]
== END ==
PROVIDERS: PCP Nurse Practitioner Family; Visit Provider Nurse Practitioner Family
DX: M79.604 Pain in right leg (principal); M79.89 Other specified soft tissue disorders; S89.91XA Unspecified injury of right lower leg, initial encounter
CPT/HCPCS: 73718

== ENCOUNTER → 2022-07-01 08:11 | Outpatient (CLI) | payer BC, SELFPAY ==
--- NOTE | 2022-07-01 08:17 | US_ITS ---
FINAL REPORT TECHNIQUE: Ultrasound images of the abdomen were obtained. CLINICAL HISTORY: ABD PAIN AND NAUSEA FINDINGS: The pancreas is obscured by bowel gas. There is fatty infiltration of the liver with sparing near the gallbladder. The common duct is normal. The right kidney measures 12.2 cm in length and is normal in echogenicity without hydronephrosis. The left kidney measures 12.0 cm in length and is normal in echogenicity without hydronephrosis. The spleen measures in the upper limits of normal in size. The aorta is normal in caliber. The vena cava is unremarkable. IMPRESSION: Fatty liver. Spleen slightly enlarged. Reviewed, Interpreted and Dictated by Matt Klein MD Transcribed by Patti Gonzalez Authenticated and [facility]
== END ==
LOC: RAD 08:12
PROVIDERS: PCP Nurse Practitioner Family; Visit Provider Nurse Practitioner Family
DX: R10.10 Upper abdominal pain, unspecified (principal); R11.0 Nausea
CPT/HCPCS: 76700

== ENCOUNTER → 2022-11-11 09:57 | Outpatient (CLI) | payer BC, SELFPAY ==
[2022-11-11 11:31] LABS: Alanine Aminotransferase 24 U/L (12-78); Albumin Level 4.2 g/dl (3.5-5.0); Alkaline Phosphatase 81 U/L (38-126); Aspartate Amino Transferase 23 U/L (17-59); Bilirubin,Indirect 0.2 mg/dL (0.0-0.9); Bilirubin,Total 0.2 mg/dl (0.2-1.3); Bilirubin,Unconjugated 0.4 mg/dL (0.0-1.1); Chol/HDL Ratio 4.6 (1-3.5); Cholesterol 124 mg/dl (140-200); HDL Cholesterol 27 mg/dl (40-60); Total Protein,Serum 6.8 g/dl (6.3-8.2); Triglycerides 209 mg/dl (30-150); VLDL Cholesterol 42 mg/dL (0-40)
[2022-11-11 11:42] LABS: Direct LDL Cholesterol 71.11 mg/dL (100-129)
== END ==
LOC: LAB 09:57
PROVIDERS: PCP Nurse Practitioner Family; Visit Provider Nurse Practitioner Family
DX: I11.9 Hypertensive heart disease without heart failure (principal); G47.33 Obstructive sleep apnea (adult) (pediatric); E66.9 Obesity, unspecified; Z68.38 Body mass index [BMI] 38.0-38.9, adult
CPT/HCPCS: 36415; 80061; 80076

== ENCOUNTER → 2023-03-27 15:46 | Outpatient (CLI) | payer BC, SELFPAY ==
[2023-03-27 15:03] LABS: Basophils # 0.1 K/mm3 (0-0.2); Basophils % 0.7 % (0.1-2.0); Eosinophils # 0.1 K/mm3 (0.0-0.4); Eosinophils % 1.6 % (0.1-12.0); Hematocrit 42.6 % (42.0-52.0); Hemoglobin 14.4 g/dL (14.1-18.0); Lymphocytes # 1.4 K/mm3 (0.7-4.5); Lymphocytes % 17.7 % (10-50); Mean Corpuscular HGB Conc 33.8 g/dL (31.8-35.4); Mean Corpuscular Hemoglobin 27.1 pg (27.0-31.2); Mean Corpuscular Volume 80.1 fl (80-94); Monocytes # 0.4 K/mm3 (0.1-1.0); Monocytes % 4.9 % (1.7-9.3); Neutrophils # 5.8 K/mm3 (1.8-7.8); Neutrophils % 75.1 % (37.0-80.0); Platelet Count 352 K/mm3 (142-424); Red Blood Count 5.32 M/mm3 (4.60-6.20); Red Cell Distribution Width 14.6 % (11.5-17.5); White Blood Count 7.7 K/mm3 (4.8-10.8)
[2023-03-27 15:11] LABS: Alanine Aminotransferase 28 U/L (12-78); Albumin Level 4.6 g/dl (3.5-5.0); Albumin/Globulin Ratio 1.5 (1.1-1.8); Alkaline Phosphatase 73 U/L (38-126); Aspartate Amino Transferase 30 U/L (17-59); Bilirubin,Total 0.5 mg/dl (0.2-1.3); Blood Urea Nitrogen 17 mg/dl (9-20); Calcium 8.9 mg/dl (8.4-10.2); Carbon Dioxide 23 mmol/L (22.0-30.0); Chloride 108 mmol/L (98-107); Cholesterol 154 mg/dl (140-200); Estimated Glomerular Filt Rate 128 ml/min (>60); GFR (African American) 154 ML/MIN (>60); Glucose 98 mg/dl (74-100); Total Protein,Serum 7.6 g/dl (6.3-8.2); Triglycerides 188 mg/dl (30-150); VLDL Cholesterol 38 mg/dL (0-40)
[2023-03-27 15:12] LABS: Anion Gap 11.6 mEq/L (5-15); Chol/HDL Ratio 4.8 (1-3.5); HDL Cholesterol 32 mg/dl (40-60); Potassium 4.6 mmoL/L (3.5-5.1); Sodium 138 mmol/L (136-145)
[2023-03-27 15:21] LABS: Direct LDL Cholesterol 96.49 mg/dL (100-129)
[2023-03-27 15:25] LABS: 25-OH Vitamin D, Total 26.2 ng/mL (30-100)
[2023-03-27 15:39] LABS: Thyroid Stimulating Hormone 0.63 uIU/mL (0.465-4.68)
== END ==
PROVIDERS: PCP Nurse Practitioner Family; Visit Provider Nurse Practitioner Family
DX: E78.1 Pure hyperglyceridemia (principal); E55.9 Vitamin D deficiency, unspecified; Z68.41 Body mass index [BMI] 40.0-44.9, adult
CPT/HCPCS: 80053; 80061; 82306; 84443; 85025

== ENCOUNTER 2023-09-14 21:41 | Outpatient (CLI) | payer BC, SELFPAY | END 2023-09-14 23:59 | disposition home or self-care (01) | LOC: LAB.DROPOF 21:43 | PROVIDERS: PCP Family Medicine; Visit Provider Family Medicine | DX: J02.9 Acute pharyngitis, unspecified (principal) | CPT/HCPCS: 87070 ==

== ENCOUNTER 2023-12-17 15:20 | Outpatient (CLI) | payer BC, SELFPAY ==
[2023-12-17 16:31] LABS: Alanine Aminotransferase 30 U/L (12-78); Alkaline Phosphatase 64 U/L (38-126); Aspartate Amino Transferase 27 U/L (17-59); Bilirubin,Direct 0.2 mg/dl (0.0-0.4); Bilirubin,Indirect 0.2 mg/dL (0.0-0.9); Bilirubin,Total 0.4 mg/dl (0.2-1.3); Bilirubin,Unconjugated 0.2 mg/dL (0.0-1.1); Chol/HDL Ratio 5.7 (1-3.5); Cholesterol 170 mg/dl (140-200); HDL Cholesterol 30 mg/dl (40-60)
[2023-12-17 16:36] LABS: Triglycerides 442 mg/dl (30-150)
[2023-12-17 16:41] LABS: Direct LDL Cholesterol 92.69 mg/dL (100-129)
== END 2023-12-17 23:59 | disposition home or self-care (01) ==
LOC: LAB 15:22
PROVIDERS: PCP Physician Assistant; Visit Provider Nurse Practitioner Family
DX: E78.1 Pure hyperglyceridemia (principal); I10 Essential (primary) hypertension
CPT/HCPCS: 36415; 80061; 80076

== ENCOUNTER 2024-02-16 10:43 | Outpatient (CLI) | payer BC, SELFPAY ==
[2024-02-16 18:14] LABS: Basophils # 0.1 K/mm3 (0-0.2); Basophils % 0.9 % (0.1-2.0); Eosinophils # 0.1 K/mm3 (0.0-0.4); Eosinophils % 1.6 % (0.1-12.0); Hematocrit 41.9 % (42.0-52.0); Hemoglobin 13.9 g/dL (14.1-18.0); Lymphocytes # 1.3 K/mm3 (0.7-4.5); Lymphocytes % 16.5 % (10-50); Mean Corpuscular HGB Conc 33.1 g/dL (31.8-35.4); Mean Corpuscular Hemoglobin 26.9 pg (27.0-31.2); Mean Corpuscular Volume 81.3 fl (80-94); Mean Platelet Volume 8.7 fl (7.4-10.4); Monocytes # 0.4 K/mm3 (0.1-1.0); Monocytes % 5.6 % (1.7-9.3); Neutrophils # 5.9 K/mm3 (1.8-7.8); Neutrophils % 75.4 % (37.0-80.0); Platelet Count 313 K/mm3 (142-424); Red Blood Count 5.15 M/mm3 (4.60-6.20); Red Cell Distribution Width 14.9 % (11.5-17.5); White Blood Count 7.8 K/mm3 (4.8-10.8)
[2024-02-16 18:43] LABS: Albumin Level 4.5 g/dl (3.5-5.0); Chloride 107 mmol/L (98-107); Sodium 140 mmol/L (136-145)
[2024-02-16 18:44] LABS: Potassium 4.3 mmoL/L (3.5-5.1)
[2024-02-16 18:46] LABS: Alanine Aminotransferase 21 U/L (12-78); Albumin/Globulin Ratio 1.7 (1.1-1.8); Alkaline Phosphatase 77 U/L (38-126); Anion Gap 16.3 mEq/L (5-15); Aspartate Amino Transferase 25 U/L (17-59); Bilirubin,Total 0.6 mg/dl (0.2-1.3); Blood Urea Nitrogen 19 mg/dl (9-20); Carbon Dioxide 21 mmol/L (22.0-30.0); Cholesterol 144 mg/dl (140-200); Estimated Glomerular Filt Rate 109 ml/min (>60); GFR (African American) 132 ML/MIN (>60); Globulin 2.7 g/dL (1.3-3.2); Total Protein,Serum 7.2 g/dl (6.3-8.2); Triglycerides 192 mg/dl (30-150); VLDL Cholesterol 38 mg/dL (0-40)
[2024-02-16 18:47] LABS: Calcium 9.1 mg/dl (8.4-10.2); Chol/HDL Ratio 5.1 (1-3.5); Glucose 83 mg/dl (74-100); HDL Cholesterol 28 mg/dl (40-60)
[2024-02-16 18:58] LABS: Direct LDL Cholesterol 89.72 mg/dL (100-129)
[2024-02-16 19:18] LABS: Thyroid Stimulating Hormone 1.39 uIU/mL (0.465-4.68)
[2024-02-16 19:37] LABS: 25-OH Vitamin D, Total 25.8 ng/mL (30-100)
[2024-02-16 20:54] LABS: HIV (1&2) Antibody Rapid NONREACTIVE (NONREACTIVE)
[2024-02-18 06:15] LABS: HCV Ab Non Reactive (Non Reactive)
== END 2024-02-16 23:59 | disposition home or self-care (01) ==
LOC: LAB.DROPOF 02-17 09:42
PROVIDERS: PCP Nurse Practitioner Family; Visit Provider Nurse Practitioner Family
DX: I10 Essential (primary) hypertension (principal); E66.01 Morbid (severe) obesity due to excess calories; Z68.41 Body mass index [BMI] 40.0-44.9, adult; F33.1 Major depressive disorder, recurrent, moderate; Z11.4 Encounter for screening for human immunodeficiency virus [HIV]
CPT/HCPCS: 80050; 80053; 80061; 82306; 84443; 85025; 86803; 87389

== ENCOUNTER 2024-11-04 08:36 | Outpatient (CLI) | payer BC, SELFPAY ==
--- NOTE | 2024-11-04 08:45 | CT_ITS ---
FINAL REPORT TECHNIQUE: Multiple axial CT sections were performed through the face prior to and following IV contrast administration. Coronal and sagittal reconstruction images were performed. This study was performed with techniques to keep radiation doses as low as reasonably achievable (ALARA). Individualized dose reduction techniques using automated exposure control or adjustment of mA and/or kV according to the patient's size were employed. CLINICAL HISTORY: Chronic sinusitis COMPARISON: None FINDINGS: The paranasal sinuses are clear. There is mild narrowing of the left ostiomeatal complex due to mucosal thickening. The right ostiomeatal complex is widely patent. There is mild nasal septal deviation to the right measuring 3 mm. There is no obvious enhancing soft tissue mass within the sinuses or nasal cavity. IMPRESSION: No evidence of active sinusitis. Reviewed, Interpreted and Dictated by Nafisa Pulido MD Transcribed by Preeti Ace Authenticated and [facility]
[2024-11-04 09:18] LABS: Blood Urea Nitrogen 22 mg/dl (9-20); Creatinine,Serum 0.90 mg/dl (0.66-1.25); Estimated Glomerular Filt Rate 95 ml/min (>60); GFR (African American) 115 ML/MIN (>60)
[2024-11-04] MEDS: IOPAMIDOL-370 (76%);100ML BOTTLE 75 ML IV (09:43)
[2024-11-04] MEDS: SODIUM CHLORIDE 0.9% 10ML SYR (RAD ONLY) 10 ML IV (09:43)
== END 2024-11-04 23:59 | disposition home or self-care (01) ==
LOC: RAD 08:38
PROVIDERS: PCP Nurse Practitioner Family; Visit Provider Nurse Practitioner
DX: J32.9 Chronic sinusitis, unspecified (principal)
CPT/HCPCS: 70488; 82565; 84520; Q9967

== ENCOUNTER 2024-11-15 09:41 | Outpatient (CLI) | payer BC, SELFPAY ==
[2024-11-15 08:29] VITALS: BMI 40.6
--- NOTE | 2024-11-15 09:45 | XR_ITS ---
FINAL REPORT CLINICAL HISTORY: pulmonary surgical clearance..sob on exertion FINDINGS: 2 views of the chest were obtained . The heart is normal in size. The mediastinum is within normal limits. The lungs are clear. There is no pneumothorax. Osseous structures are unremarkable. IMPRESSION: No acute cardiopulmonary process. Reviewed, Interpreted and Dictated by Matt Klein MD Transcribed by Codie Amado Authenticated and [facility]
--- NOTE | 2024-11-15 10:05 | ECG_ITS ---
APPROVED REPORT Exam: Resting ECG HR:70 bpm ECG Measurements Heart Rate 70 AXES GA 142 P 45 QRSd 110 QRS 24 QT 372 T 34 QTc 393 Conclusion SINUS RHYTHM NORMAL ECG UNCONFIRMED REPORT Electronically signed by : Varghese Lucero MD 11/16/2024 08:33:46
[2024-11-15 10:20] LABS: Hematocrit 41.5 % (42.0-52.0); Hemoglobin 13.6 g/dL (14.1-18.0); Mean Corpuscular HGB Conc 32.8 g/dL (31.8-35.4); Mean Corpuscular Hemoglobin 25.8 pg (27.0-31.2); Mean Corpuscular Volume 78.7 fl (80-94); Platelet Count 336 K/mm3 (142-424); Red Blood Count 5.27 M/mm3 (4.60-6.20); White Blood Count 8.3 K/mm3 (4.8-10.8)
[2024-11-15 10:30] LABS: Anion Gap 11.0 mEq/L (5-15); Blood Urea Nitrogen 14 mg/dl (9-20); Calcium 10.0 mg/dl (8.4-10.2); Carbon Dioxide 24 mmol/L (22.0-30.0); Chloride 108 mmol/L (98-107); Creatinine Clearance Estimated 236 mL/min (50-200); Creatinine,Serum 0.80 mg/dl (0.66-1.25); Estimated Glomerular Filt Rate 109 ml/min (>60); GFR (African American) 132 ML/MIN (>60); Glucose 107 mg/dl (74-100); Potassium 4.0 mmoL/L (3.5-5.1); Sodium 139 mmol/L (136-145)
[2024-11-15 12:13] LABS: Hypochromasia 1+; Total Cells Counted 100
== END 2024-11-15 23:59 | disposition home or self-care (01) ==
LOC: PREOP 09:42
PROVIDERS: PCP Nurse Practitioner Family; Visit Provider Otolaryngology
DX: Z01.810 Encounter for preprocedural cardiovascular examination (principal); Z01.811 Encounter for preprocedural respiratory examination; Z01.812 Encounter for preprocedural laboratory examination; R06.02 Shortness of breath
CPT/HCPCS: 71046; 80048; 85007; 85014; 85018; 85048; 85049; 93005

== ENCOUNTER 2024-11-21 07:25 | Day surgery (SDC) | payer BC, SELFPAY ==
[2024-11-16 05:41] VITALS: BMI 40.6
[2024-11-21] VITALS (10 sets, daily range): BP systolic 128–168; BP diastolic 60–95; PULSE 63–80; RESP 16–17; TEMP 36.1–36.7; O2SAT 93–97
[2024-11-21] MEDS: OXYMETAZOLINE NASAL SPRAY 0.05% 15ML 2 ML NS (08:25)
[2024-11-21] MEDS: LACTATED RINGERS 1000ML 1,000 ML 25 ML IV (08:26)
--- NOTE | 2024-11-21 08:31 | EXP.ANES.CKL ---
[facility] Disclaimer: The information contained in this section may have been updated after the patient was seen, as this information can be updated by other users. Medical History Chronic eustachian tube dysfunction Nasal turbinate hypertrophy Sinusitis HTN (hypertension) Hypertriglyceridemia Surgical History History of wisdom tooth extraction History of testicular surgery Hx of foot surgery Family History Other Family history of cancer Family history of diabetes mellitus Family history of heart disease Social History Smoking Status: Never smoker second hand exposure: No alcohol intake: never substance use type: denies use current occupational status: employed Travel in the last 8 weeks?: None household members: family housing: house marital status: single Have you lived/traveled outside [place] in past 30 days?: No Contact w/someone who lives/traveled outside [place] past 30 days?: No Exposure to someone with infectious disease in past 14 days?: No Do you have a fever (greater than 100.4 F or 38 C)?: No Have you tested positive for COVID-19?: No Exposed to someone with COVID-19 in past 14 days?: No Do you have a sore throat?: No Do you have a cough?: No Do you have any weakness?: No Do you have any diarrhea?: No Are you experiencing any unusual bleeding?: No Do you have any muscle aches/pain?: No Do you have any abdominal pain?: No Are you experiencing loss of taste or smell?: No [facility] Anesthesia Checklist Patient Identification Patient Identification: Arm Band and Verbal (Name & ) Structural Data Admitted From: Home Planned Operative Procedure/s: Bilateral turbinate submucosal resection, bilateral eustachian tube dilate Consent for Planned Operative Procedure(s) Verified: Yes Verified Documents: Surgical Consent NPO Status Verified Time NPO: 00:00 Chart Verification Results Verified: ECG Additional verifications Anesthesia Reactions: No (Dry hieves) Hx Blood Transfusions: No Blood Transfusion Reaction: No Airway Assessment Mallampati Score:: Class II C-Spine Mobility Assessed: Yes TMJ Mobility Assessed: Yes Dentition: Good Dentition Neurological Assessment Level of Consciousness: Awake, Alert and Appropriate Hx Seizures: No Numbness or tingling in extremities: No Anesthesia Plan Anesthesia Risk discussed: Yes Anesthesia Plan: Verified ASA Class: II Anesthesia Type: General
[2024-11-21] MEDS: MUPIROCIN 2% OINTMENT 22GM TUBE 22 GM TP (10:03)
[2024-11-21] MEDS: OXYMETAZOLINE NASAL SPRAY 0.05% 15ML 15 ML NS (10:04)
[2024-11-21] MEDS: LIDOCAINE 1% W/EPI 1:100,000 20ML VIAL 20 ML (10:04)
[2024-11-21] MEDS: LIDOCAINE 1% 20ML MDV 20 ML (10:05)
--- NOTE | 2024-11-21 10:43 | P.OP_ITS ---
Date of procedure: 11/21/24 Pre-op Diagnosis:: Chronic Eustachian Tube Dysfunction Inferior turbinate hypertrophy Post-op Diagnosis:: Same Right nasal septal spur Procedure performed:: 1. Bilateral endoscopic eustachian tube balloon dilatation 2. Bilateral submucosal resection of inferior turbinates 3. Right endoscopic septoplasty Surgeon:: Julio Robin III, MD Leadership Program Intern(s):: None [employer] BUILDER:: Isaac Chaves Anesthesia: GETA Estimated blood loss (mL): 30 Operative findings:: Bilaterally inferior turbinate hypertrophy, right septal spur with impaction Operative note:: The patient was brought to the operating room placed under general endotracheal anesthesia with IV sedation. He was then placed in a lounge chair position. His nose was prepared with topical lidocaine and Afrin soaked cottonoids. I also injected 1% lidocaine with epinephrine into the septal mucosa and the inferior turbinate mucosa. The face was then prepared and draped. After adequate time was allowed for vasoconstriction, the cottonoids were removed. I used the 0 degree pediatric endoscope and identified the left eustachian tube opening. This opening was cannulated with an Audion eustachian tube balloon, the it was advanced and inflated for 2 minutes. This was then done on the right side. As noted, he did have a right septal spur which with made it difficult to advance the endoscope and the balloon simultaneously. The septal spur was infractured using the Sena septal displacer. This did allow for placement of the eustachian tube balloon within the eustachian tube opening this was advanced and inflated for 2 minutes. At this point I injected 1% lidocaine plain into both inferior turbinates. Using the 2 mm turbinate shaver blade I made an incision at the midportion of the inferior turbinate and did a submucosal resection posterior to this on the left. I then made a separate incision at the head of the inferior turbinate did a submucosal resection here. The similar procedure was performed on the right inferior turbinate. Both turbinates were outfractured. Topical mupirocin ointment was applied for dressing. The patient stomach contents were aspirated clear. He was awakened in the operating room and taken to the recovery room in good condition. Condition: stable Disposition: PACU Complications:: none
--- NOTE | 2024-11-21 10:46 | EXP.ANES.I ---
[facility] Anesthesia Record Part I Anesthesia Record I Intake, IV Amount: 900 Hydration: Adequate Estimated blood loss (mL): 5 Urine output (mL): 0 Blood Products used (#): none Blood Pressure: 165/88 SaO2: 93 Pulse Rate: 80 Airway Patency: Patent Respiratory Rate: 16 Temperature: 97 F Patient is:: Drowsy and Stable Stable to PACU at:: 10:40
--- NOTE | 2024-11-21 12:21 | EXP.ANES.II ---
[facility] Anesthesia Record Part II Anesthesia Record Part II Discharge Time: 11:10 Destination: Surgical Day Care (OP Surgery) PACU nurse assessment reviewed?: Yes Patient Condition:: Good Anesthesia Complications:: None Swallowing reflex intact?: Yes Airway Patency: Patent Cyanosis?: No Blood Pressure: 168/95 SaO2: 97 Respiratory Rate: 17 Pulse Rate: 71 Temperature: 98.1 F Mental Status: Alert & Oriented Pain level:: 0 Nausea and/or vomitting:: None Intake, IV Amount: 0 Hydration: Adequate
== END 2024-11-21 11:45 | disposition home or self-care (01) ==
PROVIDERS: PCP Nurse Practitioner Family; Visit Provider Otolaryngology
PROC: (CPT 30140; principal; 2024-11-21 09:30)
DX: H69.93 Unspecified Eustachian tube disorder, bilateral (principal); J34.3 Hypertrophy of nasal turbinates; J32.9 Chronic sinusitis, unspecified; J34.89 Other specified disorders of nose and nasal sinuses; I10 Essential (primary) hypertension; Z88.8 Allergy status to other drugs, medicaments and biological substances; Z79.82 Long term (current) use of aspirin; Z79.899 Other long term (current) drug therapy; E78.1 Pure hyperglyceridemia
CPT/HCPCS: 30140; 69706; C1726; J1100; J2003; J2004; J2250; J2405; J2704; J3010; J7120